=== PATIENT | female | born 2000 | race African-American/Black ===

== ENCOUNTER 2022-06-03 14:33 | Emergency (ER) | payer OTHER, SELFPAY ==
[2022-06-03 14:48] VITALS: BP 121/95; PULSE 85; RESP 22; TEMP 36.3; O2SAT 100
--- NOTE | 2022-06-03 14:57 | ED.URI ---
HPI - URI/Sore Throat General Chief Complaint: Upper Respiratory Infection Stated Complaint: Sore Throat Time Seen by Provider: 06/03/22 14:57 History of Present Illness HPI Narrative: 21-year-old female presented for complaint of sore throat and neck pain for 5 days. Endorses bilateral ear pressure. Denies shortness of breath, wheezing, nausea, vomiting, fevers or chills. She has taken occasional ibuprofen for symptoms. Denies sick contacts. Related Data Allergies Allergy/AdvReac Type Severity Reaction Status Date / Time No Known Allergies Allergy Verified 06/03/22 14:48 Review of Systems Review of Systems: CONSTITUTIONAL: Denies body aches, fever, chills, or sweats. EYES: Denies visual changes, redness, or discharge. ENT: Per HPI. CARDIOVASCULAR: Denies chest pain, palpitations, or edema. RESPIRATORY: Denies dyspnea. GASTROINTESTINAL: Denies abdominal pain, nausea, vomiting, or diarrhea. SKIN: Denies rash, itching, or wounds. MUSCULOSKELETAL: Denies back pain, joint pain, or myalgia. 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 EYES: conjunctivae clear ENT: Mucous membranes moist. TM pearly todd with normal light reflex bilaterally; no tragal tenderness. Oropharynx erythematous without lesions. Tonsils enlarged 2+ with exudate. No drooling, no hoarseness, no trismus, uvula midline. No tripod positioning, hot potato voice, or soft palate swelling. NECK: Supple. No lymphadenopathy CHEST: Clear to auscultation, breath sounds equal. No respiratory distress, speaks in full sentences. HEART: Regular rate and rhythm. No murmur heard. SKIN: Warm, dry, no rash. NEURO: Alert and oriented x3. Course Course Emergency Course: Patient is aware of diagnosis, understands and agrees to treatment plan. Anticipatory guidance given. Patient agrees to follow-up as directed and is aware of reasons to seek care at the emergency department. Portions of this record may have been created with voice recognition software Level of Care: Express Care Visit Vital Signs Vital signs: Vital Signs Temperature 97.3 F L 06/03/22 14:48 Pulse Rate 85 06/03/22 14:48 Respiratory Rate 22 H 06/03/22 14:48 Blood Pressure 121/95 H 06/03/22 14:48 Pulse Oximetry 100 06/03/22 14:48 Oxygen Delivery Room Air 06/03/22 14:48 Temperature 97.3 F L 06/03/22 14:48 Pulse Rate 85 06/03/22 14:48 Respiratory Rate 22 H 06/03/22 14:48 Blood Pressure 121/95 H 06/03/22 14:48 Pulse Oximetry 100 06/03/22 14:48 Oxygen Delivery Room Air 06/03/22 14:48 MDM - URI/Sore Throat MDM Narrative Medical decision making narrative: strep result reviewed with pt. will treat based on CC and PE. Advise supportive treatments. Patient is appropriate for outpatient treatment and follow-up. Differential Diagnosis Differential diagnosis: Likely upper respiratory infection, viral infection and pharyngitis Discharge Plan Discharge Clinical Impression: Acute tonsillitis Patient Disposition: Home, Self-Care Condition: Stable Instructions: Antibiotic Form, Strep Throat (ED) Additional Instructions: - Take the antibiotic as directed. Fever and sore throat typically resolve within one to three days. Most patients can return to work after 12 to 24 hours of antibiotic therapy, provided you are fever free and otherwise well. -Eat and drink things that are easy to swallow, like soft foods, cool liquids, tea with honey, or popsicles . -Salt water gargles and/or may use topical anesthetic ( Chloraseptic spray) or lozenges to relieve dryness or throat pain -Alternate Tylenol and ibuprofen as needed for pain and fever as directed. -Frequent hand washing or hand permastone mechanic is one of the best ways to prevent spread of infection. Throw away the toothbr
== END 2022-06-03 15:15 | disposition home or self-care (01) ==
PROVIDERS: Emergency Provider Nurse Practitioner Family
DX: J03.90 Acute tonsillitis, unspecified (principal)
CPT/HCPCS: 87081; 87880; 99203; G0463